=== PATIENT | male | born 1995 | race Caucasian/White ===

== ENCOUNTER 2017-07-19 22:54 | Emergency (ER) | payer OTHER ==
[~2017-07-19] VITALS: Ht 170.2 cm; Wt 67.3 kg
[~2017-07-19 22:54] MED LIST: ASPI-390 PO
[2017-07-19 22:58] VITALS: TEMP 36.7; Ht 170.2 cm; Wt 67.3 kg
[2017-07-19] MEDS ORDERED: KETOROLAC TROMETHAMINE 30 MG/ML VIAL IV STA (23:23)
[2017-07-19] MEDS ORDERED: SODIUM CHLORIDE 0.9% 1000ML 1,000 ML IV STA (23:23)
[2017-07-19] MEDS ORDERED: ONDANSETRON INJ 2 MG/ML 2 ML VIAL IV STA (23:23)
[2017-07-20] MEDS ORDERED: DiphenhydrAMINE HCL 50 MG/ML VIAL IV STA (00:05)
[2017-07-20] MEDS ORDERED: METOCLOPRAMIDE HCL INJ 5 MG/ML 2 ML VIAL IV STA (00:05)
[2017-07-20] MEDS ORDERED: ONDA4TAB10 SL (00:52)
--- NOTE | 2017-07-20 00:53 | EMERGENCY ROOM VISIT NOTE ---
History First contact with patient: 23:08 Chief Complaint: HEADACHE Stated Complaint: MIGRAINE,CAN'T STOP VOMITING History of Present Illness The patient is a 22 year old male who presents to the Emergency Room with complaints of a migraine headache which began 5 hours ago. The patient states that he has had a gradually worsening headache over the past 5 hours. He has a history of migraines and states this feels similar. He has associated vomiting. He has been seen here one time previously for a headache. He has seen neurology at home in the past but now follows up with his primary care provider for his migraines. This is not the worst headache of his life. He tried sumatriptan this morning without relief. He also took Excedrin without relief. He rates his discomfort a 7/10. He denies any neck pain/stiffness, fevers, numbness or weakness. Review of Systems A complete 10 point review of systems was reviewed with the patient with pertinent positives and negatives as per history of present illness. All else were negative. Past Medical/Surgical History Medical Problems: (1) Chronic migraine Family History Diabetes mellitus Hypertension Social History Smoking Status: Never Smoker Alcohol Use: none Occupation Status: unemployed Current/Historical Medications Scheduled Ondasetron Odt (Zofran Odt), 4 MG SL Q6H Scheduled PRN Hhyjxlb-Vnvjkeucouhox-Ebwtlfob (Excedrin Migraine), 2 TAB PO DIRECTED PRN for Headache Physical Exam Vital Signs Date Time Temp Pulse Resp B/P (MAP) Pulse Ox O2 Delivery O2 Flow Rate FiO2 07/20/17 01:03 56 18 102/52 99 07/20/17 00:13 60 18 97/52 100 Room Air 07/19/17 22:58 36.7 82 22 121/75 98 Room Air Physical Exam VITALS: Vitals are noted on the nurse's note and reviewed by myself. Vital signs stable. GENERAL: This is a 22-year-old male, in no acute distress, nondiaphoretic, well- developed well-nourished. HEAD: Normocephalic atraumatic. EARS: External auditory canals clear, tympanic membranes pearly benoit without erythema or effusion bilaterally. EYES: Pupils equal round and reactive to light and accommodation. Conjunctivae without injection, sclerae without icterus. Extraocular movements intact. MOUTH: Mucous membranes moist. Tonsils are not enlarged. Pharynx without erythema or exudate. NECK: Supple without nuchal rigidity. No lymphadenopathy. HEART: Regular rate and rhythm without murmurs gallops or rubs. LUNGS: Clear to auscultation bilaterally without wheezes, rales or rhonchi. MUSCULOSKELETAL: Full range of motion throughout. Strength 5/5 throughout. NEURO: Patient was alert and oriented to person place and time. Normal sensation to light and sharp touch. No focal neurological deficits. Medical Decision & Procedures Medications Administered Medications (Trade) Dose Ordered Sig/Marlo Route Start Time Stop Time Status Last Admin Dose Admin Sodium Chloride 1,000 ml @ 999 mls/hr Q1H1M STAT IV 07/19/17 23:23 07/20/17 00:23 DC 07/19/17 23:33 999 MLS/HR Ketorolac Tromethamine (Toradol Inj) 30 mg NOW STAT IV 07/19/17 23:23 07/19/17 23:24 DC 07/19/17 23:35 30 MG Ondansetron HCl (Zofran Inj) 4 mg NOW STAT IV 07/19/17 23:23 07/19/17 23:24 DC 07/19/17 23:35 4 MG Diphenhydramine HCl (Benadryl Inj) 25 mg NOW STAT IV 07/20/17 00:05 07/20/17 00:07 DC 07/20/17 00:17 25 MG ED Course The patient was evaluated as above. IV access was obtained. Patient was medicated with 1 L normal saline solution, 30 mg Toradol IV and 4 mg Zofran IV. Patient was reevaluated and reported relief of his nausea and mild relief of his pain. Patient was given 10 mg Reglan and 25 mg Benadryl. Patient was reevaluated and reported full relief of his symptoms. Discharge instructions were reviewed with the patient. The patient verbalized understanding of my assessment and treatment plan and was discharged home in good condition. Medical Decision The differential diagnosis includes acute intracranial bleed, meningitis, encephalitis, mass or mass effect, sinusitis, infection, tumor, headache, temporal arteritis and carbon monoxide exposure, and migraine. The patient is a 22-year-old male who presents today complaining of headache consistent with previous migraines. There is no evidence of meningitis or encephalitis on exam. Patient reported significant improvement with the above treatment. He was given a prescription of Zofran. He was instructed to follow- up with his PCP. Medication Reconcilliation Current Medication List: was personally reviewed by me Blood Pressure Screening Patient's blood pressure: Normal blood pressure Impression Primary Impression: Migraine Departure Information Dispostion Home / Self-Care Condition GOOD Prescriptions Ondasetron Odt (ZOFRAN ODT) 4 Mg Tab 4 MG SL Q6H for Nausea, #20 TAB Prov: Alejandra Pike ., GREG 07/20/17 Referrals [facility] (PCP) Patient Instructions My [facility] Additional Instructions You have been treated in the Emergency Department for a Headache. You have received pain medicine in the emergency department which impairs your ability to operate a vehicle. It is illegal for you to drive after receiving these medicines. You have been prescribed Zofran to be used for any nausea or vomiting. Take as prescribed. For pain control, you can use the following [id number] medicines (if >12 yo): - Regular strength (325mg/tab) Tylenol (acetaminophen) 2 tabs every 4-6 hours as needed. Do not exceed 12 tablets in a 24 hour period. Avoid taking more than 4 grams (4000 mg) of Tylenol per day. This includes any other sources of acetaminophen you may take on a regular basis. - Regular strength (200 mg/tab) Advil (ibuprofen) 1-2 tabs every 4-6 hours as needed. Do not exceed a dose of 3200 mg per day. You should relax in a quiet, dark place for the rest of the day. Avoid any possible triggers including: cigarette smoke, caffeine, nicotine, chocolate, wine, beer, loud noises or music, or bright lights. You should schedule a follow-up appointment in 2-3 days with your Primary Care Provider or established Neurologist for further evaluation and treatment of your Headache. Return to the Emergency Department if your current symptoms worsen despite treatment course outlined above, or if you develop any of the following symptoms : intractable pain despite aforementioned treatment course, visual disturbances , loss of vision, unilateral weakness or facial drooping, slurring of speech, loss of coordination, or loss of consciousness.
[2017-07-20 01:03] VITALS: BP 102/52; PULSE 56; O2SAT 99
== END 2017-07-20 01:05 | disposition home or self-care (01) ==
LOC: C.EDB 22:55 → C.EDA 07-20 01:05
DX: G43.909 Migraine, unspecified, not intractable, without status migrainosus (principal); Z83.3 Family history of diabetes mellitus; Z82.49 Family history of ischemic heart disease and other diseases of the circulatory system